=== PATIENT | male | born 1945 | race Caucasian/White ===

== ENCOUNTER → 2020-04-25 | Outpatient (CLI) | payer MEDICARE ==
[~2020-04-25] MED LIST: METOPROLOL 1 MG/ML, 5ML ONE; VISIPAQUE 320 MG/ML, 150ML BOTTLE ONE
[2020-04-25 10:40] LABS: CREATININE 0.82 mg/dL (0.7-1.3)
== END | disposition home or self-care (01) ==
LOC: CVU 09:17
PROVIDERS: ATTEND Internal Medicine Cardiovascular Disease
DX: Z01.810 Encounter for preprocedural cardiovascular examination (principal); I65.23 Occlusion and stenosis of bilateral carotid arteries; K76.0 Fatty (change of) liver, not elsewhere classified; K57.30 Diverticulosis of large intestine without perforation or abscess without bleeding; R06.02 Shortness of breath; I35.0 Nonrheumatic aortic (valve) stenosis; I77.1 Stricture of artery; N28.1 Cyst of kidney, acquired; I70.0 Atherosclerosis of aorta; R16.0 Hepatomegaly, not elsewhere classified
CPT/HCPCS: 36415; 71275; 74174; 82565; 93880; 94010; 94726; 94729; Q9967

== ENCOUNTER 2020-05-09 06:02 | Inpatient (IN) | payer MEDICARE ==
[~2020-05-09] VITALS: Ht 172.7 cm; Wt 90.8 kg
[2020-05-09] MEDS ORDERED: ONDANSETRON 2MG/ML, 2ML IVPush PRN (06:30)
[2020-05-09] MEDS ORDERED: SODIUM CHLORIDE 0.9% 1,000 ML IV ONE (06:30)
[2020-05-09] MEDS ORDERED: ATOR40TA PO (06:40)
[2020-05-09] MEDS ORDERED: CYAN-10 PO (06:40)
[2020-05-09] MEDS ORDERED: AMLO1CAP54 PO (06:40)
[2020-05-09] MEDS ORDERED: CHOL10003 PO (06:40)
[2020-05-09 06:42] VITALS: BP 106/73
[2020-05-09] MEDS ORDERED: HEPARIN 1,000 UNITS/ML, 10ML ONE (07:14)
[2020-05-09] MEDS ORDERED: PHENYLEPHRINE 10 MG/ML ONE (07:15)
[2020-05-09] MEDS ORDERED: SODIUM CHLORIDE 0.9% PF 10ML ONE (07:15)
[2020-05-09] MEDS ORDERED: FENTANYL PF 100 MCG/2ML ONE ×2 (07:15→08:11)
[2020-05-09] MEDS ORDERED: EPINEPHRINE 1 MG/ML, 1ML ONE (07:15)
[2020-05-09] MEDS ORDERED: LIDOCAINE-MPF 2% ,5ML ONE (07:15)
[2020-05-09 07:25] LABS: BASOPHILS % (AUTO) 1 % (0-1); EOSINOPHILS % (AUTO) 1 % (1-7); LYMPHOCYTES % (AUTO) 22 % (22-44); MEAN CORPUSCULAR HEMOGLOBIN 34.6 pg (27.5-34.5); MEAN CORPUSCULAR HGB CONC 34.5 g/dL (33.2-36.2); MEAN PLATELET VOLUME 8.8 fL (7.4-10.4); MONOCYTES % (AUTO) 10 % (2-9); NEUTROPHILS % (AUTO) 66 % (42-75); PLATELET COUNT 182 x10^3/uL (130-400); RED BLOOD COUNT 4.49 x10^6/uL (4.38-5.82)
[2020-05-09 07:36] LABS: ALANINE AMINOTRANSFERASE 33 U/L (12-78); ALBUMIN 3.7 g/dL (3.4-5.0); ANION GAP 10 mmol/L (5-15); CALCIUM 8.5 mg/dL (8.5-10.1); CHLORIDE 112 mmol/L (98-107); CREATININE 0.92 mg/dL (0.7-1.3)
[2020-05-09 07:37] LABS: MD NO
[2020-05-09 07:38] LABS: ALKALINE PHOSPHATASE 66 U/L (45-117); BILIRUBIN,TOTAL 0.5 mg/dL (0.2-1.0); TOTAL PROTEIN 7.5 g/dL (6.4-8.2)
[2020-05-09] MEDS ORDERED: SUGAMMADEX 200 MG/2 ML IVPush ONE (07:52)
[2020-05-09 08:11] LABS: INTERNATIONAL NORMALIZED RATIO 0.95 (0.93-1.1); PROTHROMBIN TIME 10.1 Seconds (9.6-11.5)
[2020-05-09] MEDS ORDERED: PROTAMINE SULFATE 10 MG/ML, 5ML ONE (08:14)
[2020-05-09] MEDS ORDERED: SUCCINYLCHOLINE 20 MG/ML, 10ML ONE (08:49)
[2020-05-09] MEDS ORDERED: ROCURONIUM 10MG/ML,5ML ONE (08:49)
[2020-05-09] MEDS ORDERED: ONDANSETRON 2MG/ML, 2ML ONE (08:49)
[2020-05-09] MEDS ORDERED: DEXAMETHASONE 4 MG/ML, 1ML ONE (08:49)
[2020-05-09] MEDS ORDERED: PROPOFOL 10 MG/ML, 20ML ONE (08:49)
[2020-05-09] MEDS ORDERED: CEFAZOLIN 1,000 MG ONE (08:49)
[2020-05-09] MEDS ORDERED: hydrALAzine 20 MG/ML, 1ML IVPush PRN (09:00)
[2020-05-09] MEDS ORDERED: ACETAMINOPHEN 325 MG TABLET PO PRN (09:00)
[2020-05-09] MEDS ORDERED: HYDROcodone/APAP 5/325 TABLET PO PRN (09:00)
[2020-05-09] MEDS ORDERED: LABETALOL 20 MG/4 ML IVPush PRN (09:00)
[2020-05-09] MEDS ORDERED: ASPIRIN 81 MG TABLET EC ONE (09:24)
[2020-05-09 14:00] VITALS: BP 123/76
[2020-05-09 19:21] VITALS: BP 128/73
[2020-05-09] MEDS ORDERED: ATORVASTATIN 10 MG TABLET PO SCH (21:00)
[2020-05-10 00:41] VITALS: BP 115/71
[2020-05-10 06:49] LABS: BASOPHILS % (AUTO) 1 % (0-1); EOSINOPHILS % (AUTO) 0 % (1-7); LYMPHOCYTES % (AUTO) 9 % (22-44); MEAN CORPUSCULAR HEMOGLOBIN 33.9 pg (27.5-34.5); MEAN CORPUSCULAR HGB CONC 33.9 g/dL (33.2-36.2); MEAN PLATELET VOLUME 8.9 fL (7.4-10.4); MONOCYTES % (AUTO) 9 % (2-9); NEUTROPHILS % (AUTO) 81 % (42-75); PLATELET COUNT 132 x10^3/uL (130-400); RED BLOOD COUNT 4.26 x10^6/uL (4.38-5.82)
[2020-05-10 06:51] LABS: MD NO
[2020-05-10 06:59] LABS: ANION GAP 8 mmol/L (5-15); CALCIUM 8.6 mg/dL (8.5-10.1); CHLORIDE 109 mmol/L (98-107); CREATININE 0.77 mg/dL (0.7-1.3)
[2020-05-10 07:18] VITALS: BP 118/71
[2020-05-10] MEDS ORDERED: AMLODIPINE 10 MG TAB PO SCH (09:00)
[2020-05-10] MEDS ORDERED: ASPIRIN 81 MG TABLET EC PO SCH (09:00)
[2020-05-10] MEDS ORDERED: ACET325T26 PO (10:16)
[2020-05-10] MEDS ORDERED: ASPI81TA45 PO (10:16)
[2020-05-11] MEDS ORDERED: ASPIRIN 81 MG TABLET EC PO SCH (06:00)
== END 2020-05-10 12:00 | disposition home or self-care (01) | DRG 266 ==
LOC: ORIP 06:02 → 5SO 11:53 → DCLOUNGE 05-10 11:53
PROVIDERS: ADMIT Internal Medicine Cardiovascular Disease; ATTEND Internal Medicine Cardiovascular Disease
PROC: B246ZZ4 Ultrasonography of Right and Left Heart, Transesophageal (ICD-10-PCS; 2020-05-09)
PROC: 02RF38Z Replacement of Aortic Valve with Zooplastic Tissue, Percutaneous Approach (ICD-10-PCS; principal; 2020-05-09 07:30)
DX: I35.0 Nonrheumatic aortic (valve) stenosis (principal); Z00.6 Encounter for examination for normal comparison and control in clinical research program; I50.33 Acute on chronic diastolic (congestive) heart failure; Z20.828 Contact with and (suspected) exposure to other viral communicable diseases; E78.5 Hyperlipidemia, unspecified; I11.0 Hypertensive heart disease with heart failure
CPT/HCPCS: 33361; 36415; 76937; 80048; 80053; 85025; 85347; 85610; 85730; 86850; 86900; 86923; 87635; 93005; 93306; 93312; 93321; 93325; 93355; 93356; C1760; C1769; C1894; G0378; J0171; J0690; J1100; J1644; J2405; J2704; J2720; J3010; J0330; J2370; J7030; Q9967

== ENCOUNTER → 2020-05-16 | Outpatient (CLI) | payer MEDICARE, BC ==
[~2020-05-16] MED LIST changes: +ACET325T26 PO; +AMLO1CAP54 PO; +ASPI81TA45 PO; +ATOR40TA PO; +CHOL10003 PO; +CYAN-10 PO; -METOPROLOL 1 MG/ML, 5ML ONE; -VISIPAQUE 320 MG/ML, 150ML BOTTLE ONE
== END | disposition home or self-care (01) ==
LOC: CVU 14:52
PROVIDERS: ATTEND Internal Medicine Cardiovascular Disease
DX: I34.8 Other nonrheumatic mitral valve disorders (principal); Z95.2 Presence of prosthetic heart valve
CPT/HCPCS: 93306; 93356